=== PATIENT | female | born 1950 | race Caucasian/White ===

== ENCOUNTER 2017-09-11 09:17 | Emergency (ER) | payer OTHER ==
[~2017-09-11] VITALS: Ht 152.4 cm; Wt 41.4 kg
[2017-09-11 09:25] VITALS: BP 106/75
--- NOTE | 2017-09-11 09:29 | NUR ---
[facility] to OF[facility]1 at this time.
--- NOTE | 2017-09-11 09:31 | NUR ---
PATIENT BIB [facility] WITH C/O FRONT UPPER TOOTH ACHE X 1 DAY;UPPER LIP SLIGHTLY SWOLLEN; TOOK UNKNOWN PAIN MEDICATION THIS MORNING NO ;C/O PAIN AT THIS TIME;DENIES ANY MEDICAL HX; DENIES N/V/D; SKIN IS PINK/WARM/DRY; AAOX4 WITH EVEN AND STEADY GAIT; LUNGS CLEAR BL; HR EVEN AND REGULAR; PT DENIES ANY FEVER, CP, SOB, OR COUGH AT THIS TIME;PATIENT POSITIONED FOR COMFORT; HOB ELEVATED;ER MD MADE AWARE OF PT STATUS.
[2017-09-11] MEDS ORDERED: HYDROcodone/APAP 5/325 MG 1 TAB TAB PO ONE (09:40)
--- NOTE | 2017-09-11 09:47 | NUR ---
CAN'T GET MEDICINE;PHARMACIST STILL STOCKING MEDICINE IN THE [facility].
[2017-09-11 10:08] VITALS: BP 113/61
--- NOTE | 2017-09-11 10:08 | NUR ---
Patient discharged with v/s stable. Written and verbal after care instructions given and explained. Patient alert, oriented and verbalized understanding of instructions. Ambulatory with to car. All questions addressed prior to discharge. ID band removed. Patient advised to follow up with PMD. Rx of AUGMENTIN,ACETAMINOPHEN,IBUPROFEN given. Patient educated on indication of medication including possible reaction and side effects. Opportunity to ask questions provided and answered.
== END 2017-09-11 10:08 | disposition home or self-care (01) ==
LOC: MED 09:17
DX: K02.9 Dental caries, unspecified (principal); K05.10 Chronic gingivitis, plaque induced; I10 Essential (primary) hypertension
CPT/HCPCS: 99283